=== PATIENT | female | born 1990 | race African-American/Black ===

== ENCOUNTER 2020-02-17 16:58 | Inpatient (IN) ==
[2020-02-17] MEDS ORDERED: LACTATED RINGERS 1,000 ML IV PRN (17:19)
[2020-02-17] MEDS ORDERED: ONDANSETRON 4 MG/2 ML VIAL IV PRN (17:19)
[2020-02-17] MEDS ORDERED: LACTATED RINGERS 1,000 ML IV SCH (17:30)
[2020-02-17 17:45] LABS: Basophils % 0.4 % (0.0-0.8); Eosinophils # 0.2 10*3/uL (0.0-0.87); Hematocrit 35.4 VOL% (35.7-47.0); Immature Granulocytes % 0.5 %; Immature Granulocytes Absolute 0.04 #; Lymphocytes # 1.5 10*3/uL (1.4-4.0); Lymphocytes % 19.2 % (21.3-54.2); Mean Corpuscular HGB Conc 33.9 GM/DL (32-36); Mean Corpuscular Volume 95.4 FL (87-102); Mean Platelet Volume 11.4 FL (9.6-12.0); Monocytes % 8.4 % (1.7-12.7); Neutrophils % 69.5 % (38.7-73.9); Platelet Count 179 T/CUMM (130-400); Red Blood Count 3.71 MC/CUMM (3.8-5.5); Red Cell Distribution Width 12.8 % (9.3-17.3); White Blood Count 7.9 T/CUMM (4-12)
[2020-02-17] MEDS ORDERED: MEPERIDINE 50 MG/1 ML VIAL IV PRN (17:59)
[2020-02-17] MEDS ORDERED: BUTORPHANOL 2 MG/ML VIAL IV PRN (18:00)
[2020-02-17] MEDS ORDERED: miSOPROStoL 200 MCG TABLET PO SCH (18:00)
[2020-02-17 18:01] LABS: Alanine Aminotransferase 56 U/L (13-56); Albumin 2.8 G/DL (3.4-5.0); Alkaline Phosphatase 50 U/L (45-117); Aspartate Amino Transferase 33 U/L (0-37); Bilirubin,Total < 0.39 MG/DL (0.2-1.0); Blood Urea Nitrogen 11 MG/DL (7-18); Calcium 9.3 MG/DL (8.5-10.1); Estimated Glom Filtration Rate 117 ML/MIN; Glucose 97 MG/DL (74-106); Total Protein 7.2 G/DL (6.4-8.3)
[2020-02-17] MEDS ORDERED: ZALEPLON 5 MG CAPSULE PO SCH (20:12)
[2020-02-17] MEDS ORDERED: METHYLERGONOVINE 0.2 MG/1 ML AMP ONE (21:49)
[2020-02-17] MEDS ORDERED: TRANEXAMIC ACID 1,000 MG/10 ML VIAL ONE (21:49)
[2020-02-17] MEDS ORDERED: miSOPROStoL 200 MCG TABLET ONE (21:49)
[2020-02-17] MEDS ORDERED: OXYTOCIN/LR 20 UNIT/1,000 ML BAG IV ONE (21:49)
[2020-02-17] MEDS ORDERED: CARBOPROST TROMETHAMINE 250 MCG/ML AMP IM ONE (21:50)
[2020-02-18] MEDS ORDERED: IBUPROFEN 800 MG TABLET PO PRN (02:08)
[2020-02-18 07:13] VITALS: BP 105/62
[2020-02-18 07:45] LABS: Basophils % 0.3 % (0.0-0.8); Eosinophils # 0.1 10*3/uL (0.0-0.87); Eosinophils % 1.1 % (0.00-10.9); Hematocrit 34.8 VOL% (35.7-47.0); Hemoglobin 11.7 GM/DL (12.0-16.0); Immature Granulocytes % 0.3 %; Immature Granulocytes Absolute 0.04 #; Lymphocytes # 1.6 10*3/uL (1.4-4.0); Lymphocytes % 12.4 % (21.3-54.2); Mean Corpuscular HGB Conc 33.6 GM/DL (32-36); Mean Corpuscular Volume 95.1 FL (87-102); Mean Platelet Volume 11.4 FL (9.6-12.0); Monocytes % 7.8 % (1.7-12.7); Neutrophils % 78.1 % (38.7-73.9); Platelet Count 156 T/CUMM (130-400); Red Blood Count 3.66 MC/CUMM (3.8-5.5); Red Cell Distribution Width 12.7 % (9.3-17.3); White Blood Count 12.7 T/CUMM (4-12)
== END 2020-02-18 11:30 | disposition home or self-care (01) | DRG 807 ==
LOC: N.LDOUT 16:58 → N.LD 17:03 → N.OB 23:50
PROVIDERS: ADMIT Obstetrics & Gynecology; ATTEND Obstetrics & Gynecology